=== PATIENT | female | born 1970 | race Caucasian/White ===

== ENCOUNTER 2017-02-15 19:27 | Emergency (ER) | payer SELFPAY ==
[~2017-02-15 19:27] MED LIST: CHLORPROMAZ200 MG PO; DORYX150 MG PO; KLONO2 PO; LIOR10 PO; TEG200 PO; TRILAFON PO; VOLT75 PO
== END 2017-02-15 19:50 | disposition home or self-care (01) ==
LOC: ER 19:27
DX: M79.675 Pain in left toe(s) (principal); F32.9 Major depressive disorder, single episode, unspecified; Z88.1 Allergy status to other antibiotic agents; Z88.2 Allergy status to sulfonamides; Z88.5 Allergy status to narcotic agent; Z88.8 Allergy status to other drugs, medicaments and biological substances; Z79.899 Other long term (current) drug therapy
CPT/HCPCS: 99283

== ENCOUNTER 2017-05-23 10:27 | Inpatient (IN) | payer OTHER ==
[~2017-05-23] VITALS: Ht 165.1 cm; Wt 59.0 kg
--- NOTE | ~2017-05-23 | HP ---
History And Physical [facility] [address] [place]. [address] NAME: CAIN HUMPHREYS : [birth year] STATUS : ADM IN [facility]#: [id number] AGE: 47 ADM/REG DATE : 05/23/17 MR#: [id number] REPORT SERV DATE: 05/23/17 DICTATED BY: LASHELL GUTIERREZ DATE: 05/23/17 REPORT STATUS : Draft TRANSCRIBED BY: JOSEFA DATE: 05/23/17 DATE OF ADMISSION: 05/23/2017 HISTORY OF PRESENT ILLNESS: The patient is a 47-year-old female who presented to [facility] with complaints of cough, fever, headache. She said that her symptoms were going on for approximately one and a half weeks and said that she had a sick contact with a little boy that is why she said that she caught those symptoms from him. She said that last week, her temperature was up to 103, now her temperature is better, but she is still coughing and cannot produce any phlegm that she just congested. She said that she had also diarrhea, but currently, no diarrhea. She does not have any chest pain, no shortness of breath. No abdominal pain. REVIEW OF SYSTEMS: All 14-point review of systems done and negative except what is stated in the history of present illness. PAST MEDICAL HISTORY: Known for history of migraine, fibromyalgia, and bipolar disorder. She was also hospitalized in 2013 for possible complex partial seizures versus pseudoseizures at that time. PAST SURGICAL HISTORY: Includes history of two C-sections, history of three laparoscopic surgeries, and eventually, hysterectomy. ALLERGIES: THERE ARE MULTIPLE ALLERGIES ON THIS PATIENT, WHICH INCLUDE COMPAZINE, DARVOCET, BENADRYL, ULTRAM, MAXALT, RELPAX, SULFA, TYLENOL FROM DARVOCET-N, ERYTHROMYCIN, IMITREX, ZOMIG, MORPHINE. HOME MEDICATIONS: Include Celexa 20 mg a day, Klonopin 2 mg three times daily, Seroquel 50 mg twice a day, trazodone 300 mg at bedtime and 150 every morning. SOCIAL HISTORY: The patient smokes three-quarters of a pack a day since she was 14 years old. She is trying to cut down on her smoking. She denies any use of alcohol. She denies any use of recreational drugs. She lives with her grandmother. She has children, but she lives with her grandmother. She does not have work and her boyfriend is at the bedside. FAMILY HISTORY: Mother had COPD and emphysema. Father of a colorectal cancer. PHYSICAL EXAMINATION: GENERAL: A well-nourished, well-developed female, not in acute distress, resting quietly. VITAL SIGNS: Blood pressure 107/76, temperature 98, heart rate 99, respiratory rate 16, and oxygen saturation 91 on room air. HEENT: Head atraumatic, normocephalic. Conjunctivae clear. Pupils are equal and reactive to light and accommodation. Extraocular muscles are intact. NECK: Supple. Trachea is midline. No supraclavicular or cervical lymphadenopathy. LUNGS: Diminished breath sounds bilaterally with mild wheezing and normal respiratory effort. History And Physical [address] [address] NAME: CAIN HUMPHREYS : [birth year] STATUS : ADM IN [facility]#: [id number] AGE: 47 ADM/REG DATE : 05/23/17 MR#: [id number] REPORT SERV DATE: 05/23/17 DICTATED BY: LASHELL GUTIERREZ DATE: 05/23/17 REPORT STATUS : Draft TRANSCRIBED BY: JOSEFA DATE: 05/23/17 CARDIOVASCULAR: Regular rate and rhythm. Point of maximal impulse not displaced. ABDOMEN: Soft, nontender, nondistended. Positive normoactive bowel sounds. EXTREMITIES: No clubbing, cyanosis, or edema. SKIN: Normal color and turgor. PSYCHIATRIC: Normal mood and flat affect. LABORATORY RESULTS: Sodium 140, potassium 3.1, chloride 103, carbon dioxide 27, BUN 3, creatinine 0.89, blood sugar 103, alkaline phosphatase 141, ALT 21, AST 22. Lactate level 4.1. White count 18,000, hemoglobin 15.1, hematocrit 44.5, platelet count 425, segment percentage 58%. Urinalysis did not show any evidence of urinary infection. Chest x-ray was done and personally interpreted by me and the ER physician. I do not see any focal infiltrate, but we will wait for official Radiology report. ASSESSMENT AND PLAN: This is a 47-year-old female with a history of fibromyalgia and bipolar disorder with a possible history of seizures versus pseudoseizures, presented, 1. With nonproductive cough, recent fever. 2. Leukocytosis, possible pneumonia versus bronchitis. 3. Elevated lactic acid level with possible sepsis syndrome. PLAN: 1. We will admit the patient to cardiac telemetry bed for her cough and pneumonia. We will start the patient on Levaquin as well as we will give her breathing treatments with DuoNebs, and we will monitor her closely. 2. Possible sepsis syndrome. Her blood pressure still in the normal range, although low normal. We will give her IV fluid hydration as well as we will check her procalcitonin. Blood cultures are already drawn in the emergency room. If patient will produce sputum, we will obtain sputum culture also. For further delineation of pneumonia, we will do a CT of the chest without contrast. I will also check her CT of abdomen and pelvis without contrast as well. 3. Hypokalemia. Will be replaced by protocol. 4. She will be put on DVT prophylaxis. 5. Headache. The patient requested Dilaudid for headache. She said nothing else helps her headache. We will give her very minimal dose of Dilaudid every six hours and will monitor. If blood pressure will be low, we will hold the Dilaudid. 6. Antibiotic, Levaquin as IV fluids already started. MG/MODL Lashell Gutierrez M.D. / [id number] CC: Lashell Gutierrez M.D.
--- NOTE | ~2017-05-23 | DS ---
Discharge Summary [facility] [id number] [place]. [address] NAME: CAIN HUMPHREYS : 68 STATUS : DIS IN PAT#: [id number] AGE: 47 ADM/REG DATE : 05/23/17 MR#: [id number] REPORT SERV DATE: 05/27/17 DICTATED BY: GARO PANDEY DATE: 05/26/17 REPORT STATUS : Draft TRANSCRIBED BY: JOSEFA DATE: 05/26/17 ADMISSION DATE: 05/23/2017 DISCHARGE DATE: 05/26/2017 DIAGNOSES: 1. Hypoxic respiratory failure. 2. Bilateral pneumonia. 3. Leukocytosis secondary to above. 4. Tension headaches/migraines, resolved. 5. Tobacco abuse. 6. Vaginal candidiasis. FOLLOWUP: The patient should follow up with the primary care physician in one week and continue with ICS q.1 hour while at home. DISCHARGE MEDICATIONS: Home dose of Celexa 20 mg p.o. daily, Diflucan 150 mg p.o. q. day for two days, Flonase b.i.d. for one week, Levaquin 750 mg p.o. daily for three days, Seroquel 50 mg p.o. b.i.d. per home dose, trazodone 300 mg p.o. q.h.s. per home dose, Klonopin 2 mg p.o. t.i.d., Symbicort 80/4.5 two puffs inhaled b.i.d., albuterol MDI two puffs inhaled q.4 hours p.r.n., albuterol neb one neb q.6 hours. HOSPITALIST: Dr. Marci Ibarra, Dr. Pandey. HOSPITAL COURSE: Please see H and P dictated by Dr. Ibarra. This is a 47-year-old female with a past medical history of fibromyalgia, bipolar disorder, migraine headaches, presented with a chief complaint of subjective fever, chills, with headache and cough and some shortness of breath. The patient states she has had a sick contact with a young child, developed 103 temperature. Thereafter, she was admitted to the hospitalist Service. She had the CT of the chest without contrast that revealed some patchy ground glass densities in the lingula and the right lower lobe and right middle lobe. The patient was continued on antibiotics with Levaquin as well as bronchodilator. She did have a CT of the abdomen and pelvis on admission, although the patient did not have any abdominal complaints and no abdominal pain, but did have some lactic acidosis secondary to her infection. CT of the abdomen and pelvis was nondiagnostic for any acute findings. The patient had a slow progression during her hospital course. Also was educated on multiple times on tobacco abuse cessation. Occasionally, the patient would leave the mazariegos to smoke a cigarette and also nicotine patches were discontinued. The patient required oxygen for the majority of her hospital course. However, her O2 sats have been improved to the point where the patient was saturating 92% to 94% on room air with ambulation which was checked twice on the day of discharge. Also, the patient's tension headache resolved. Also, the patient was started on Diflucan for vaginal candidiasis, and she was discharged to home in stable condition to follow up as an outpatient. ADINA/JOSEFA Discharge Summary [address] [address] NAME: CAIN HUMPHREYS : 68 STATUS : DIS IN PAT#: [id number] AGE: 47 ADM/REG DATE : 05/23/17 MR#: [id number] REPORT SERV DATE: 05/27/17 DICTATED BY: GARO PANDEY DATE: 05/26/17 REPORT STATUS : Draft TRANSCRIBED BY: JOSEFA DATE: 05/26/17 Garo Pandey M.D. / [id number] CC: Garo Pandey M.D.
[2017-05-23 11:21] LABS: BASOPHILS 0.4 %; EOSINOPHILS 3.6 %; EOSINOPHILS ABSOLUTE 0.64 10/3/uL (0.0-0.53); HEMATOCRIT 45.4 % (36.0-48.0); HEMOGLOBIN 15.1 g/dL (12.0-16.0); IMMATURE GRANULOCYTES 1.7 %; IMMATURE GRANULOCYTES ABSOLUTE 0.31 10/3/uL (0.0-0.11); LYMPHOCYTES 26.5 %; LYMPHOCYTES ABSOLUTE 4.77 10/3/uL (0.67-4.30); MEAN CORPUS HGB CONC 33.3 g/dL (32.0-36.0); MEAN CORPUSCULAR HEMOGLOB 31.1 pg (26.0-34.0); MEAN CORPUSCULAR VOLUME 93.4 fL (80-100); MEAN PLATELET VOLUME 10.6 fL (9.2-13.0); MONOCYTES 10.1 %; MONOCYTES ABSOLUTE 1.82 10/3/uL (0.21-1.20); NEUTROPHILS 57.7 %; NEUTROPHILS ABSOLUTE 10.38 10/3/uL (2.02-8.40); PLATELET COUNT 425 10/3/uL (150-400); RBC DISTRIBUTION WIDTH 15.5 % (12.0-16.0); RED CELL COUNT 4.86 10/6/uL (4.0-5.6)
[2017-05-23 11:23] LABS: BASOPHILS ABSOLUTE 0.08 10/3/uL (0.0-0.16); ER CBC TAT 0 Hrs 08 Mins; MANUAL DIFF NO %
[2017-05-23 11:34] LABS: LACTATE 4.1 MMOL/L (0.3-2.4)
[2017-05-23 11:41] LABS: A/G RATIO 0.7 (0.7-1.9); ALBUMIN 3.8 G/DL (3.5-5.0); ALKALINE PHOSPHATASE 141 U/L (45-117); BUN (BLOOD UREA NITROGEN) 3 MG/DL (6-23); CALCIUM, SERUM 9.3 MG/DL (8.5-10.4); CHLORIDE, SERUM 103 MMOL/L (96-112); CO2 (CARBON DIOXIDE) 27 MMOL/L (24-34); CREATININE 0.89 MG/DL (0.55-1.02); GFR AFRICAN AMERICAN 89 ML/MIN (>=60); GFR NON AFRICAN AMERICAN 77 ML/MIN (>=60); GLOBULIN 5.1 G/DL (2.5-4.1); GLUCOSE, SERUM 103 MG/DL (60-99); POTASSIUM, SERUM 3.1 MMOL/L (3.5-5.3); SGOT(AST) 22 U/L (5-40); SGPT(ALT) 29 U/L (5-65); SODIUM, SERUM 140 MMOL/L (135-148); TOTAL BILIRUBIN 0.5 MG/DL (0-1.2); TOTAL PROTEIN 8.9 G/DL (6.0-8.5)
[2017-05-23 11:45] LABS: EOSINOPHILS 4 %; EOSINOPHILS ABSOLUTE (CALC) 0.72 10/3/uL (0.0-0.53); ER DIFF TAT 0 Hrs 30 Mins; LYMPHOCYTES 24 %; LYMPHOCYTES ABSOLUTE (CALC) 4.32 10/3/uL (0.67-4.30); MONOCYTES 14 %; MONOCYTES ABSOLUTE (CALC) 2.52 10/3/uL (0.21-1.20); NEUTROPHILS ABSOLUTE (CALC) 10.44 10/3/uL (2.02-8.40); RBC MORPHOLOGY NORM (NORMAL); SEGMENTED NEUTROPHIL (0) 58 %; TOTAL NUCLEATED CELLS 100
[2017-05-23 11:46] LABS: PLATELET ESTIMATE SLT INC (ADEQUATE)
[2017-05-23 12:08] LABS: ASCORBIC ACID (UR NOT ORDER) NEG (NEG); BILIRUBIN, URINE NEGATIVE (NEG); ER URINALYSIS TAT 0 Hrs 07 Mins; KETONE, URINE NEGATIVE (NEG); LEUKOCYTE ESTERASE(NOT OR NEG (NEG); NITRITE (URINE) NEG (NEG); WBC (NOT ORDERED) (RFLEX) 1 (0-5)
[2017-05-23] MEDS ORDERED: KLONO2 PO (12:15)
[2017-05-23] MEDS ORDERED: CELEXA20 PO (12:15)
[2017-05-23] MEDS ORDERED: SEROQUEL50 MG PO (12:15)
[2017-05-23] MEDS ORDERED: TRAZODONE150 MG PO ×2 (12:16)
[2017-05-23 15:05] LABS: PROCALCITONIN <0.05 ng/mL (<0.5)
[2017-05-23 21:30] LABS: GLYCOHEMOGLOBIN (HbA1c) 5.7 % (4.7-6.1)
[2017-05-24 06:02] LABS: BASOPHILS 0.3 %; BASOPHILS ABSOLUTE 0.04 10/3/uL (0.0-0.16); EOSINOPHILS 4.1 %; EOSINOPHILS ABSOLUTE 0.48 10/3/uL (0.0-0.53); HEMATOCRIT 37.5 % (36.0-48.0); IMMATURE GRANULOCYTES 1.4 %; IMMATURE GRANULOCYTES ABSOLUTE 0.16 10/3/uL (0.0-0.11); LYMPHOCYTES ABSOLUTE 4.22 10/3/uL (0.67-4.30); MANUAL DIFF NO %; MEAN CORPUSCULAR HEMOGLOB 30.8 pg (26.0-34.0); MEAN CORPUSCULAR VOLUME 96.2 fL (80-100); MEAN PLATELET VOLUME 10.1 fL (9.2-13.0); MONOCYTES 10.4 %; MONOCYTES ABSOLUTE 1.22 10/3/uL (0.21-1.20); NEUTROPHILS 47.8 %; NEUTROPHILS ABSOLUTE 5.61 10/3/uL (2.02-8.40); PLATELET COUNT 336 10/3/uL (150-400); RBC DISTRIBUTION WIDTH 16.1 % (12.0-16.0); WHITE BLOOD CELLS 11.7 10/3/uL (4.5-10.5)
[2017-05-24 06:17] LABS: BUN (BLOOD UREA NITROGEN) 3 MG/DL (6-23); CHLORIDE, SERUM 106 MMOL/L (96-112); CO2 (CARBON DIOXIDE) 30 MMOL/L (24-34); CREATININE 0.65 MG/DL (0.55-1.02); GFR AFRICAN AMERICAN 122 ML/MIN (>=60); GFR NON AFRICAN AMERICAN 105 ML/MIN (>=60); GLUCOSE, SERUM 95 MG/DL (60-99); POTASSIUM, SERUM 3.3 MMOL/L (3.5-5.3); SGOT(AST) 16 U/L (5-40); SGPT(ALT) 21 U/L (5-65); SODIUM, SERUM 141 MMOL/L (135-148); TOTAL BILIRUBIN 0.3 MG/DL (0-1.2)
[2017-05-24 06:18] LABS: A/G RATIO 0.8 (0.7-1.9); ALBUMIN 2.7 G/DL (3.5-5.0); ALKALINE PHOSPHATASE 102 U/L (45-117); GLOBULIN 3.6 G/DL (2.5-4.1); TOTAL PROTEIN 6.3 G/DL (6.0-8.5)
[2017-05-25 07:37] LABS: BASOPHILS 0.3 %; BASOPHILS ABSOLUTE 0.04 10/3/uL (0.0-0.16); EOSINOPHILS 3.9 %; EOSINOPHILS ABSOLUTE 0.57 10/3/uL (0.0-0.53); HEMATOCRIT 35.5 % (36.0-48.0); HEMOGLOBIN 11.5 g/dL (12.0-16.0); IMMATURE GRANULOCYTES ABSOLUTE 0.15 10/3/uL (0.0-0.11); LYMPHOCYTES 28.5 %; LYMPHOCYTES ABSOLUTE 4.15 10/3/uL (0.67-4.30); MEAN CORPUS HGB CONC 32.4 g/dL (32.0-36.0); MEAN CORPUSCULAR HEMOGLOB 31.2 pg (26.0-34.0); MEAN CORPUSCULAR VOLUME 96.2 fL (80-100); MEAN PLATELET VOLUME 9.8 fL (9.2-13.0); MONOCYTES 10.4 %; MONOCYTES ABSOLUTE 1.51 10/3/uL (0.21-1.20); NEUTROPHILS 55.9 %; NEUTROPHILS ABSOLUTE 8.13 10/3/uL (2.02-8.40); PLATELET COUNT 320 10/3/uL (150-400); RBC DISTRIBUTION WIDTH 16.1 % (12.0-16.0); RED CELL COUNT 3.69 10/6/uL (4.0-5.6); WHITE BLOOD CELLS 14.6 10/3/uL (4.5-10.5)
[2017-05-25 07:39] LABS: MANUAL DIFF NO %
[2017-05-25 07:50] LABS: BUN (BLOOD UREA NITROGEN) 2 MG/DL (6-23); CALCIUM, SERUM 8.3 MG/DL (8.5-10.4); CHLORIDE, SERUM 111 MMOL/L (96-112); CO2 (CARBON DIOXIDE) 29 MMOL/L (24-34); CREATININE 0.59 MG/DL (0.55-1.02); GFR AFRICAN AMERICAN 126 ML/MIN (>=60); GFR NON AFRICAN AMERICAN 108 ML/MIN (>=60); GLUCOSE, SERUM 86 MG/DL (60-99); POTASSIUM, SERUM 3.8 MMOL/L (3.5-5.3); SODIUM, SERUM 146 MMOL/L (135-148)
[2017-05-26] MEDS ORDERED: PROVHFA INH (16:42)
[2017-05-26] MEDS ORDERED: SYMBICORT 80/4.1 INH INH (16:43)
[2017-05-26] MEDS ORDERED: ALBUTEROL0.083 % INH (16:43)
[2017-05-26] MEDS ORDERED: LEVAQUIN750 MG PO (16:44)
[2017-05-26] MEDS ORDERED: FLUCON150 PO (16:44)
[2017-05-26] MEDS ORDERED: FLONASE NAS (16:45)
== END 2017-05-26 17:23 | disposition home or self-care (01) | DRG 193 ==
LOC: ER 10:27 → 1SO 12:26
PROVIDERS: Hospitalist; Internal Medicine; Nurse Practitioner Acute Care
DX: J18.9 Pneumonia, unspecified organism (principal); J96.01 Acute respiratory failure with hypoxia; E87.2 Acidosis; F17.210 Nicotine dependence, cigarettes, uncomplicated; E87.6 Hypokalemia; B37.3 Candidiasis of vulva and vagina; F31.9 Bipolar disorder, unspecified; M79.7 Fibromyalgia; G43.909 Migraine, unspecified, not intractable, without status migrainosus; Z79.899 Other long term (current) drug therapy; Z88.2 Allergy status to sulfonamides; Z88.1 Allergy status to other antibiotic agents; Z88.5 Allergy status to narcotic agent; Z88.6 Allergy status to analgesic agent; Z88.8 Allergy status to other drugs, medicaments and biological substances
CPT/HCPCS: 71010; 71250; 74176; 80048; 80053; 81001; 83036; 83605; 83735; 83880; 84132; 84145; 84443; 84703; 85025; 85379; 87040; 87070; 87205; 87449; 94640; 96365; 96375; 99285; A9270-GY; J1170; J1956; J2405